=== PATIENT | female | born 1985 | race Caucasian/White ===

== ENCOUNTER 2019-02-18 12:01 | Emergency (ER) | payer MEDICAID ==
[~2019-02-18] VITALS: Ht 157.5 cm; Wt 124.7 kg
[2019-02-18 12:05] VITALS: Ht 157.5 cm; Wt 124.7 kg
[2019-02-18 13:16] VITALS: BP 118/73
== END 2019-02-18 13:16 | disposition home or self-care (01) ==
LOC: ED 12:01
DX: M79.10 Myalgia, unspecified site (principal); R51 Headache; R20.0 Anesthesia of skin; R11.0 Nausea; J45.909 Unspecified asthma, uncomplicated; R42 Dizziness and giddiness; Z88.0 Allergy status to penicillin; Z98.890 Other specified postprocedural states; Z88.8 Allergy status to other drugs, medicaments and biological substances
CPT/HCPCS: Q0162